=== PATIENT | female | born 1955 ===

== ENCOUNTER 2018-08-25 10:57 | Inpatient (IN) | payer MEDICARE, MEDICAID ==
--- NOTE | 2018-08-25 11:08 | ED PDOC ---
Psych Transfer Clearance - Clearance Statement Clearance Statement: Reviewed vital signs, lab results and transfer papers. Patient clinically stable for psychiatric admission.
[2018-08-25 11:10] VITALS: O2SAT 96
[2018-08-25] MEDS ORDERED: Magnesium Hydroxide Susp 30 ml UD PO PRN (11:32)
[2018-08-25] MEDS ORDERED: Bismuth Subsalicylate 262 mg/15 ml Sus (240 ml) PO PRN (11:32)
--- NOTE | 2018-08-25 11:40 | PCM.PSYCH ---
Initial Psychiatric Evaluation - Initial Psychiatric Evaluation Type of Admission: Voluntary Legal Status: Capacity Chief Complaint (in patient's own words): "I'm talking to my mother." Patient's Reaction to Hospitalization: HPI: 63 yo female w/ h/o Bipolar Disorder vs Schizoaffective Disorder (pt reports she has been diagnosed with both), presents w/ worsening depression, poor sleep, poor appetite and auditory and visual hallucinations of her mother. She reports that she has been talking to her mother. No SI/HI/paranoia. PPHx: H/o Bipolar Disorder vs Schizoaffective Disorder; currently prescribed Abilify 15 mg, Prozac 20 mg, Remeron 15 mg, Wellbutrin 75 mg, Cogentin 1 mg, Topamax 25 mg-prescribed by different providers. PMHx: HLD, HTN PSurgHx: 2015- h/o R breast cancer s/p mastectomy and chemo; gastric sleeve ALL: Iodine, Latex, PC SHx: Lives alone, , 3 adult children, from [facility], denies drugs/etoh/cig use Current Medications: Active Medications Generic Name Dose Route Start Last Admin Trade Name Freq PRN Reason Stop Dose Admin Acetaminophen 650 mg 08/25/18 11:32 Tylenol 325mg Tab PO Q4 PRN Pain, moderate (4-7) Al Hydrox/Mg Hydrox/Simethicone 30 ml 08/25/18 11:32 Maalox Plus 30 Ml PO Q4 PRN Dyspepsia Bismuth Subsalicylate 524 mg 08/25/18 11:32 Pepto-Bismol PO Q4 PRN Diarrhea Lorazepam 0.5 mg 08/25/18 11:32 Ativan PO 09/08/18 11:33 HS PRN Insomnia Lorazepam 0.5 mg 08/25/18 11:32 Ativan PO 09/08/18 11:33 Q6 PRN Anixety/Agitation Magnesium Hydroxide 30 ml 08/25/18 11:32 Milk Of Magnesia PO HS PRN Constipation Past Psychiatric History - Past Psychiatric History Pertinent Medical Hx (Current Medical&Sleep Prob, Allergies): Allergies Allergy/AdvReac Type Severity Reaction Status Date / Time Iodinated Contrast- Oral and Allergy RASH Verified 08/25/18 11:02 IV Dye latex Allergy RASH Verified 08/25/18 11:02 Penicillins Allergy RASH Verified 08/25/18 11:02 Review of Systems - Psychiatric Psychiatric: Abnormal Sleep Pattern, Anxiety, Auditory Hallucinations, Behavioral Changes, Change in Appetite, Depression, Difficulty Concentrating, Hallucinations, Hopelessness, Irritability, Mood Swings, Visual Hallucinations Mental Status Examination - Personal Presentation Personal Presentation: Looks stated age - Affect Affect: Constricted, Depressed - Motor Activity Motor Activity: Calm - Reliability in Providing Information Reliability in Providing Information: Fair - Speech Speech: Coherent - Mood Mood: Depressed - Formal Thought Process Formal Thought Process: Hallucinations - Hallucinations/Delusions Hallucinations: Visual, Auditory - Obsessions/Compulsions Obsessions: No Compulsions: No - Cognitive Functions Orientation: Person, Place, Situation, Time Sensorium: Alert Judgement: Intact, as evidence by: Insight regarding need for hospitalization Memory: Recent intact, as evidence by: Ability to recall events of the day - Risk Risk: Diminished functioning - Strength & Assets Inventory Strength & Assets Inventory: Cooperative - Limitations Limitations: Living alone, Decreased memory, recent DSM 5 DX - DSM 5 DSM 5 Diagnosis: Schizoaffective Disorder - Recommended/Plan of Treatment Treatment Recommendations and Plan of Treatment: Schizoaffective Disorder -Admit to psychiatry unit -Increase Abilify -Increase Remeron -Hold other psychiatric medications to determine if they are clinically indicated -Obtain collateral history -Medicine consult -Disposition planning Projected ELOS: 7-10 days Discharge Plan and Discharge Criteria: Discharge patient when she is psychiatrically stable - Smoking Cessation Smoking Cessation Initiated: No Reason for not providing: Not indicated
--- NOTE | 2018-08-25 14:37 | PCM.BM ---
<GeoffLesli C - Last Filed: 08/25/18 14:34> Treatment Plan Problems - Problems identified on initial assessmt ALTERED THOUGHT PROCESS Date Initiated: 08/25/18 Time Initiated: 14:35 Assessment reference: HP, NA Status: Active TACTILE HALLUCINATIONS Date Initiated: 08/25/18 Time Initiated: 14:38 Assessment reference: HP, NA Status: Active AUDITORY HALLUCINATIONS Date Initiated: 08/25/18 Time Initiated: 14:39 Assessment reference: HP, NA Status: Active VISUAL HALLUCINATIONS Date Initiated: 08/25/18 Time Initiated: 14:40 Assessment reference: HP, NA Status: Active ALTERED SLEEP Date Initiated: 08/25/18 Time Initiated: 14:40 Assessment reference: HP, NA Status: Active HOPELESS/HELPLESS Date Initiated: 08/25/18 Time Initiated: 14:41 Assessment reference: HP, NA Status: Active KNOWLEDGE DEFICIT: HYPERTENSION Date Initiated: 08/25/18 Time Initiated: 14:42 Assessment reference: HP, NA Status: Active IMPAIRED Date Initiated: 08/25/18 Time Initiated: 14:42 Assessment reference: HP, NA Status: Active Treatment assets and liabiliti Patient Assests: cooperative, cognitively intact Patient Liabilities: live alone, language/speech - Milieu Protocol Maintain good personal hygiene: daily Encourage regular showers, daily Remind patient to perform daily oral care, daily Assist patient to perform ADL's Maintain personal safety: every shift Educate patient to report safety concerns to staff, every shift Monitor environment for contraband/sharps Medication safety: Monitor for expected outcome, potential side effects: every shift, Assess barriers to learning: every shift, Assess readiness for medication education: every shift Milieu Narrative: Schizoaffective Disorder -Admit to psychiatry unit -Increase Abilify -Increase Remeron -Hold other psychiatric medications to determine if they are clinically indicated -Obtain collateral history -Medicine consult -Disposition planning Family Contact Family contact name: RANCHO BUSH Family contact comment: RANCHO BUSH [phone] Discharge/Continuing Care - Treatment Team Participation Patient/Family/SO Statement: Schizoaffective Disorder -Admit to psychiatry unit -Increase Abilify -Increase Remeron -Hold other psychiatric medications to determine if they are clinically indicated -Obtain collateral history -Medicine consult -Disposition planning <Alyssa Brown - Last Filed: 08/28/18 11:52> - Diagnosis (1) Schizoaffective disorder Status: Acute Interventions: Medication management, Individual and group therapy, Psychoeducation 08/28/18 11:52 <Falguni Zurita - Last Filed: 08/29/18 08:18> Family Contact Family involvement: Family/SO is involved Family contact: Patient agrees to contact, Family has been contacted by patient, Telephone contact initiated by staff Family contact name: Rancho Bush - son Family contacted how many times per week?: 1 Family contact comment: [phone] - Outside Agency [facility] involvment: Information-sharing Agency contact name: [address] [place] [address]. [place] [address] Agency contact number: [phone] - Goals for Treatment Patient goals for treatment: Pt will improve overall mood. Pt wll be free of suicidal thoughts. Pt will develop strategies for thought distrction when ruminating on the past. Pt will attend clinical and activity groups to learn different coping skills. Discharge/Continuing Care - Education Needs Education Needs: Family Medication, Family Diagnosis/Disease Process, Family Coping Skills, Family Community resources, Family Activities of Daily Living, Family Health Practices/Safety, Family Personal Hygiene/Grooming, Family Aftercare Safety Plan, Patient Medication, Patient Diagnosis/Disease Process, Patient Coping Skills, Patient Community resources, Patient Activities of Daily Living, Patient Health Practices/Safety, Patient Personal Hygiene/Grooming, Patient Aftercare Safety Plan - Discharge Discharge Criteria: Tolerates medication w/o severe side effects, Free of Suicidal thoughts, Normal sleep pattern, Ability to care for self, Reduction of target symptoms, Other (Decreased depression and anxiety symptoms) Discharge to:: Home - Additional Comments 08/29/18 08:13 Pt seen and discussed in team meeting. Reason for hospitalization reviewed and discussed. Pt was a transfer from [facility]. Pt reported auditory hallucinations stating she was talking to her mother. Pt reported feeling depressed, anxious, lonely and abandoned. Pt reported that the root of her recent depression has been her children. Pt reported that she does not know the whereabouts of her daughter for the past one year; her son in [place] has a demanding job and has not visited her; and her son in [place], [place] is estranged form her. Pt reported that she bought a dog to "fill the emptiness" but that it shelton snot helped her. Pt reported that she has been experiencing suicide thoughts but no intent or plan. Pt reported hx of suicide attempt sin the past. Pt reported hx of multiple psychiatric hospitalizations. Pt reported that she feels her medications are not helping her. Pt's social and medical issues reviewed. Pt's medications reviewed. Tx plan reviewed and discussed; pt verbalized agreement. Pt provided junior underwriter with verbal and written to call her son, Rancho. SW will continue to follow case. - Treatment Team Participation Discussed with Family/SO: No Was Patient/Family/SO present at Treatment Team Meeting: Yes
[2018-08-25] MEDS: Alum-Mag Hydrox-Simethicone Susp (30 mL) PO PRN ×2 (17:31→21:32)
--- NOTE | 2018-08-25 19:45 | CP.PCM.CON ---
History of Present Illness - History of Present Illness History of Present Illness: 63 yo female with hsitory of Bipolar DO admitted to psyche unit because of worsening depression. Review of Systems - Review of Systems All systems: reviewed and no additional remarkable complaints except (aside from those mentioned above, 12 point system review were negative by me) Past Patient History - Tetanus Immunizations Tetanus Immunization: Unknown - Past Social History Smoking Status: Unknown If Ever Smoked Chewing Tobacco Use: No Cigar Use: No Alcohol: None Drugs: Denies - CARDIAC Hx Hypertension: Yes Other/Comment: Cardiac Cath 05/2018 - PULMONARY Hx Respiratory Disorders: No - NEUROLOGICAL Hx Neurological Disorder: No - HEENT Hx HEENT Problems: No - RENAL Hx Chronic Kidney Disease: No - ENDOCRINE/METABOLIC Hx Endocrine Disorders: No - HEMATOLOGICAL/ONCOLOGICAL Hx Blood Disorders: No - INTEGUMENTARY Hx Dermatological Problems: No - MUSCULOSKELETAL/RHEUMATOLOGICAL Hx Musculoskeletal Disorders: No Hx Falls: No - GASTROINTESTINAL Hx Gastrointestinal Disorders: Yes Other/Comment: history of intestinal surgery 1995 - GENITOURINARY/GYNECOLOGICAL Hx Genitourinary Disorders: No - PSYCHIATRIC Hx Bipolar Disorder: Yes Hx Depression: Yes Hx Schizophrenia: Yes Hx Substance Use: No - SURGICAL HISTORY Hx Surgeries: Yes Hx Cardiac Catheterization: Yes Hx Mastectomy: Yes - ANESTHESIA Hx Anesthesia: Yes Hx Anesthesia Reactions: No Meds Allergies/Adverse Reactions: Allergies Allergy/AdvReac Type Severity Reaction Status Date / Time Iodinated Contrast- Oral and Allergy RASH Verified 08/25/18 11:02 IV Dye latex Allergy RASH Verified 08/25/18 11:02 Penicillins Allergy RASH Verified 08/25/18 11:02 - Medications Medications: Current Medications Acetaminophen (Tylenol 325mg Tab) 650 mg PO Q4 PRN PRN Reason: Pain, moderate (4-7) Al Hydrox/Mg Hydrox/Simethicone (Maalox Plus 30 Ml) 30 ml PO Q4 PRN PRN Reason: Dyspepsia Last Admin: 08/25/18 17:31 Dose: 30 ml Aripiprazole (Abilify) 20 mg PO DAILY ARGENIS Last Admin: 08/25/18 17:28 Dose: 20 mg Aspirin (Ecotrin) 81 mg PO DAILY ARGENIS Atorvastatin Calcium (Lipitor) 40 mg PO HS ARGENIS Bismuth Subsalicylate (Pepto-Bismol) 524 mg PO Q4 PRN PRN Reason: Diarrhea Ergocalciferol (Drisdol 50,000 Intl Units Cap) 1 cap PO QWK ARGENIS HCTZ/Losartan Potassium (Hyzaar 12.5 Mg-50 Mg) 1 tab PO DAILY ARGENIS Lorazepam (Ativan) 0.5 mg PO HS PRN PRN Reason: Insomnia Stop: 09/08/18 11:33 Lorazepam (Ativan) 0.5 mg PO Q6 PRN PRN Reason: Anixety/Agitation Stop: 09/08/18 11:33 Magnesium Hydroxide (Milk Of Magnesia) 30 ml PO HS PRN PRN Reason: Constipation Metoprolol Succinate (Toprol Xl) 25 mg PO DAILY ARGENIS Mirtazapine (Remeron) 30 mg PO HS ARGENIS Pantoprazole Sodium (Protonix Ec Tab) 40 mg PO DAILY ARGENIS Physical Exam - Constitutional Appears: No Acute Distress - Head Exam Head Exam: ATRAUMATIC - Eye Exam Eye Exam: absent: Scleral icterus - ENT Exam ENT Exam: Mucous Membranes Moist - Neck Exam Neck exam: Negative for: Meningismus - Respiratory Exam Respiratory Exam: absent: Rales, Rhonchi, Wheezes, Respiratory Distress - Cardiovascular Exam Cardiovascular Exam: REGULAR RHYTHM, +S1, +S2 - GI/Abdominal Exam GI & Abdominal Exam: Soft. absent: Tenderness - Rectal Exam Rectal Exam: Deferred - Neurological Exam Neurological exam: Alert, Oriented x3 - Psychiatric Exam Psychiatric exam: Normal Affect - Skin Skin Exam: Dry, Intact Results - Vital Signs Recent Vital Signs: Last Vital Signs Temp 98 F 08/25/18 16:39 Pulse 97 H 08/25/18 16:39 Resp 20 08/25/18 16:39 BP 120/65 08/25/18 16:39 Pulse Ox 96 08/25/18 11:08 Assessment & Plan (1) Depression Status: Acute Comment: psyche is managing (2) HTN (hypertension) Status: Chronic Comment: BP stable. continue Losartan/HCTZ (3) History of breast cancer Status: Chronic Comment: continue Arimedex
[2018-08-26] MEDS: Pantoprazole 40 mg EC Tab PO SCH (08:41)
[2018-08-26] MEDS: Metoprolol Succinate 25 mg XL Tab PO SCH (08:41)
[2018-08-26] MEDS: HCTZ/Losartan 12.5/50 Tab PO SCH (08:41)
[2018-08-26] MEDS ORDERED: Ergocalciferol 50,000 Intl Units Cap PO SCH (09:00)
[2018-08-26] MEDS: Alum-Mag Hydrox-Simethicone Susp (30 mL) PO PRN (09:15)
[2018-08-26 09:44] LABS: SQUAMOUS EPITHIAL 2 /hpf (0-5); URINE BACTERIA FEW (<OCC); URINE BILIRUBIN NEGATIVE (NEGATIVE); URINE BLOOD NEGATIVE (NEGATIVE); URINE CLARITY SLIGHTY-CLOUDY (Clear); URINE COLOR YELLOW (YELLOW); URINE GLUCOSE (UA) NEG (NEGATIVE); URINE LEUKOCYTE ESTERASE NEG Leu/uL (Negative); URINE PROTEIN NEGATIVE (NEGATIVE); URINE UROBILINOGEN 0.2-1.0 mg/dL (0.2-1.0)
--- NOTE | 2018-08-26 09:45 | PCM.PYCHPN ---
Psychiatric Progress Note - Psychiatric Progress Note Patient seen today, length of contact: pt evaluated discussed with team chart reviewed Patient Chief Complaint: I still feel down Problems Identified/Issues Discussed: pt seen in day room, reported continues to feel anxious and down, underproductive speech anxious affect, denied command hallucinations, denied thoughts of self harm, o reported side effects of medications i DSM 5 Symptoms Update: schizoaffective disorder Medication Change: No Medical Record Reviewed: Yes Mental Status Examination - Cognitive Function Orientation: Person, Place, Situation, Time Attention: WNL Concentration: Poor Association: WNL Fund of Knowledge: Poor Decription of patient's judgement and insights: partial insight poor judgment - Mood Mood: Depressed - Affect Affect: Constricted, Depressed - Speech Speech: Soft - Formal Thought Process Formal Thought Process: Hallucinations - Suicidal Ideation Suicidal Ideation: No - Homicidal Ideation Homicidal Ideation: No Goal/Treatment Plan - Goal/Treatment Plan Need for Continued Stay: Remain at risks for inpatient hospitalization, Severe depression anxiety, Discharge may exacerbated symptoms Progress Toward Problem(s) and Goals/Treatment Plan: continue current medications group and supportive therapy
[2018-08-26 10:55] LABS: ALB/GLOB RATIO 1.2 (1.0-2.1); ALBUMIN 4.3 g/dL (3.5-5.0); ALT/SGPT 39 U/L (9-52); AST/SGOT 33 U/L (14-36); BLOOD UREA NITROGEN 26 mg/dl (7-17); CALCIUM 9.5 mg/dL (8.4-10.2); GFR NON-AFRICAN AMERICAN > 60; HDL CHOLESTEROL 65 MG/DL (30-70)
[2018-08-26 10:58] LABS: HEMOGLOBIN 12.4 g/dL (12.0-16.0); MEAN CELL VOLUME 94.7 fl (81.0-99.0); MEAN CORPUSCULAR HEMOGLOBIN 31.6 pg (27.0-31.0); MEAN CORPUSCULAR HGB CONC 33.4 g/dL (33.0-37.0); RBC 3.91 Mil/uL (3.80-5.20); RED CELL DISTRIBUTION WIDTH 13.3 % (11.5-14.5)
[2018-08-26 11:09] LABS: T4 7.11 ug/dl (5.5-11.0)
[2018-08-26 11:26] LABS: LDL CHOLESTEROL 135 mg/dL (0-129)
[2018-08-26 11:27] LABS: FERRITIN 28.9 ng/Ml (11.1-264.0)
[2018-08-27] MEDS: Metoprolol Succinate 25 mg XL Tab PO SCH (08:48)
[2018-08-27] MEDS: Pantoprazole 40 mg EC Tab PO SCH (08:49)
[2018-08-27] MEDS: HCTZ/Losartan 12.5/50 Tab PO SCH (08:49)
--- NOTE | 2018-08-27 10:25 | PCM.PYCHPN ---
Psychiatric Progress Note - Psychiatric Progress Note Patient seen today, length of contact: Pt evaluated, case discussed w/ team, chart reviewed Patient Chief Complaint: Depression Problems Identified/Issues Discussed: Pt continues to feel severe depression. She is labile and tearful. She denies acute AH/VH/SI/HI. She reports chronic migraines for which she takes Topamax at home. Medication Change: No Medical Record Reviewed: Yes Consults ordered or reviewed: Medicine consult Mental Status Examination - Cognitive Function Orientation: Person, Place, Situation, Time Attention: WNL Concentration: Poor Association: WNL Fund of Knowledge: Poor - Mood Mood: Depressed - Affect Affect: Constricted, Depressed - Speech Speech: Soft - Formal Thought Process Formal Thought Process: Circumstantial Psychotic Thoughts and Behaviors: Denies acute AH/VH - Suicidal Ideation Suicidal Ideation: No - Homicidal Ideation Homicidal Ideation: No Goal/Treatment Plan - Goal/Treatment Plan Need for Continued Stay: Remain at risks for inpatient hospitalization, Severe depression anxiety, Discharge may exacerbated symptoms Progress Toward Problem(s) and Goals/Treatment Plan: Schizoaffective Disorder -Contineu Abilify and Remeron -Continue Topamax for chronic migraines -Obtain collateral history -Medicine consult -Disposition planning
[2018-08-28] MEDS: Pantoprazole 40 mg EC Tab PO SCH (09:00)
[2018-08-28] MEDS: Metoprolol Succinate 25 mg XL Tab PO SCH (09:01)
[2018-08-28] MEDS: HCTZ/Losartan 12.5/50 Tab PO SCH (09:01)
--- NOTE | 2018-08-28 11:18 | PCM.PYCHPN ---
Psychiatric Progress Note - Psychiatric Progress Note Patient seen today, length of contact: Pt evaluated, case discussed w/ team, chart reviewed Patient Chief Complaint: Depression Problems Identified/Issues Discussed: Pt continues to feel depressed and anxious. She is tearful w/ mood lability. She denies acute AH/VH/SI/HI. Medication Change: No Medical Record Reviewed: Yes Consults ordered or reviewed: Medicine consult Mental Status Examination - Cognitive Function Orientation: Person, Place, Situation, Time Memory: Intact Attention: WNL Concentration: WNL Association: WNL Fund of Knowledge: WN Decription of patient's judgement and insights: Improving I/J - Mood Mood: Depressed - Affect Affect: Constricted, Depressed - Speech Speech: Soft - Formal Thought Process Formal Thought Process: Circumstantial Psychotic Thoughts and Behaviors: Denies acute AH/VH - Suicidal Ideation Suicidal Ideation: No - Homicidal Ideation Homicidal Ideation: No Goal/Treatment Plan - Goal/Treatment Plan Need for Continued Stay: Remain at risks for inpatient hospitalization, Severe depression anxiety, Discharge may exacerbated symptoms Progress Toward Problem(s) and Goals/Treatment Plan: Schizoaffective Disorder -Contineu Abilify and Remeron -Continue Topamax for chronic migraines -Obtain collateral history -Medicine consult -Disposition planning
[2018-08-28] MEDS: Docusate-Senna 50 mg-8.6 mg Tab PO SCH (21:04)
[2018-08-28 22:03] LABS: FOLATE 10.9 ng/mL
[2018-08-29] MEDS: Pantoprazole 40 mg EC Tab PO SCH (08:47)
[2018-08-29] MEDS: HCTZ/Losartan 12.5/50 Tab PO SCH (08:47)
[2018-08-29] MEDS: Metoprolol Succinate 25 mg XL Tab PO SCH (08:48)
--- NOTE | 2018-08-29 11:15 | PCM.PYCHPN ---
Psychiatric Progress Note - Psychiatric Progress Note Patient seen today, length of contact: Pt evaluated, case discussed w/ team, chart reviewed Patient Chief Complaint: Depression Problems Identified/Issues Discussed: Pt continues to feel depressed and anxious w/ tearful, constricted affect. She continues to report sleep disturbances. She denies acute AH/VH/SI/HI. Medication Change: No Medical Record Reviewed: Yes Consults ordered or reviewed: Medicine consult Mental Status Examination - Cognitive Function Orientation: Person, Place, Situation, Time Memory: Intact Attention: WNL Concentration: WNL Association: WNL Fund of Knowledge: [facility] Decription of patient's judgement and insights: Improving I/J - Mood Mood: Depressed - Affect Affect: Constricted, Depressed - Speech Speech: Soft - Formal Thought Process Formal Thought Process: Circumstantial Psychotic Thoughts and Behaviors: Denies acute AH/VH - Suicidal Ideation Suicidal Ideation: No - Homicidal Ideation Homicidal Ideation: No Goal/Treatment Plan - Goal/Treatment Plan Need for Continued Stay: Remain at risks for inpatient hospitalization, Severe depression anxiety, Discharge may exacerbated symptoms Progress Toward Problem(s) and Goals/Treatment Plan: Schizoaffective Disorder -Continue Abilify and Remeron -Continue Topamax for chronic migraines -Medicine consult -Disposition planning
--- NOTE | 2018-08-29 15:12 | CP.PCM.PN ---
<DylanLeslie - Last Filed: 08/29/18 15:18> Subjective - Date & Time of Evaluation Date of Evaluation: 08/29/18 Time of Evaluation: 15:09 - Subjective Subjective: Patient seen and evaluated today for right stye. Patient states that she noticed the bump yesterday during the afternoon. It has been causing slight pain to her upper eyelid. She denies any N/V/F/SOB/CP. Objective - Vital Signs/Intake and Output Vital Signs (last 24 hours): Temp Pulse Resp BP Pulse Ox 98.1 F 69 18 123/62 96 08/29/18 06:00 08/29/18 08:48 08/29/18 06:00 08/29/18 08:48 08/25/18 11:08 - Medications Medications: Current Medications Acetaminophen (Tylenol 325mg Tab) 650 mg PO Q4 PRN PRN Reason: Pain, moderate (4-7) Last Admin: 08/29/18 11:13 Dose: 650 mg Al Hydrox/Mg Hydrox/Simethicone (Maalox Plus 30 Ml) 30 ml PO Q4 PRN PRN Reason: Dyspepsia Last Admin: 08/26/18 09:15 Dose: 30 ml Anastrozole (Arimidex 1 Mg Tab) 1 mg PO DAILY [facility] Last Admin: 08/29/18 08:45 Dose: 1 mg Aripiprazole (Abilify) 20 mg PO DAILY [facility] Last Admin: 08/29/18 08:44 Dose: 20 mg Aspirin (Ecotrin) 81 mg PO DAILY [facility] Last Admin: 08/29/18 08:46 Dose: 81 mg Atorvastatin Calcium (Lipitor) 40 mg PO HS [facility] Last Admin: 08/28/18 21:04 Dose: 40 mg Bismuth Subsalicylate (Pepto-Bismol) 524 mg PO Q4 PRN PRN Reason: Diarrhea Ergocalciferol (Drisdol 50,000 Intl Units Cap) 1 cap PO QWK [facility] HCTZ/Losartan Potassium (Hyzaar 12.5 Mg-50 Mg) 1 tab PO DAILY [facility] Last Admin: 08/29/18 08:47 Dose: 1 tab Lorazepam (Ativan) 0.5 mg PO HS PRN PRN Reason: Insomnia Stop: 09/08/18 11:33 Lorazepam (Ativan) 0.5 mg PO Q6 PRN PRN Reason: Anixety/Agitation Stop: 09/08/18 11:33 Magnesium Hydroxide (Milk Of Magnesia) 30 ml PO HS PRN PRN Reason: Constipation Metoprolol Succinate (Toprol Xl) 25 mg PO DAILY [facility] Last Admin: 08/29/18 08:48 Dose: 25 mg Mirtazapine (Remeron) 30 mg PO HS [facility] Last Admin: 08/28/18 21:04 Dose: 30 mg Pantoprazole Sodium (Protonix Ec Tab) 40 mg PO DAILY [facility] Last Admin: 08/29/18 08:47 Dose: 40 mg Senna/Docusate Sodium (Senokot S 50 Mg-8.6 Mg) 1 tab PO HS [facility] Last Admin: 08/28/18 21:04 Dose: 1 tab Topiramate (Topamax) 25 mg PO Q12 [facility] Last Admin: 08/29/18 08:48 Dose: 25 mg - Labs Labs: 08/26/18 09:50 08/26/18 09:50 - Constitutional Appears: Non-toxic, No Acute Distress - Head Exam Head Exam: ATRAUMATIC, NORMOCEPHALIC - Eye Exam Eye Exam: Normal appearance Pupil Exam: NORMAL ACCOMODATION - Respiratory Exam Respiratory Exam: Clear to Ausculation Bilateral, NORMAL BREATHING PATTERN - Cardiovascular Exam Cardiovascular Exam: REGULAR RHYTHM - GI/Abdominal Exam GI & Abdominal Exam: Soft, Normal Bowel Sounds - Neurological Exam Neurological Exam: Alert, Awake, Oriented x3 - Psychiatric Exam Psychiatric exam: Normal Affect Assessment and Plan - Assessment and Plan (Free Text) Assessment: 63 year old female with PMHx of bipolar disorder admitted for worsening depression Plan: 1. Right eye stye Acute Apply warm compresses to right eye Encouraged patient to wash hands frequently 2. Depression Acute Managed by psych 3. HTN Chronic C/w Losartan/HCTZ <Lieberman,Felipe D - Last Filed: 09/01/18 09:55> Objective - Vital Signs/Intake and Output Vital Signs (last 24 hours): Temp Pulse Resp BP Pulse Ox 98.1 F 63 18 102/70 96 09/01/18 06:00 09/01/18 08:31 09/01/18 06:00 09/01/18 08:31 08/25/18 11:08 - Medications Medications: Current Medications Acetaminophen (Tylenol 325mg Tab) 650 mg PO Q4 PRN PRN Reason: Pain, moderate (4-7) Last Admin: 09/01/18 02:22 Dose: 650 mg Anastrozole (Arimidex 1 Mg Tab) 1 mg PO DAILY [facility] Last Admin: 09/01/18 08:30 Dose: 1 mg Aripiprazole (Abilify) 20 mg PO DAILY [facility] Last Admin: 09/01/18 08:29 Dose: 20 mg Aspirin (Ecotrin) 81 mg PO DAILY [facility] Last Admin: 09/01/18 08:30 Dose: 81 mg Atorvastatin Calcium (Lipitor) 40 mg PO HS [facility] Last Admin: 08/31/18 21:22 Dose: 40 mg Ergocalciferol (Drisdol 50,000 Intl Units Cap) 1 cap PO QWK [facility] HCTZ/Losartan Potassium (Hyzaar 12.5 Mg-50 Mg) 1 tab PO DAILY [facility] Last Admin: 09/01/18 08:31 Dose: 1 tab Metoprolol Succinate (Toprol Xl) 25 mg PO DAILY [facility] Last Admin: 09/01/18 08:31 Dose: 25 mg Mirtazapine (Remeron) 30 mg PO HS [facility] Last Admin: 08/31/18 21:23 Dose: 30 mg Pantoprazole Sodium (Protonix Ec Tab) 40 mg PO DAILY [facility] Last Admin: 09/01/18 08:31 Dose: 40 mg Senna/Docusate Sodium (Senokot S 50 Mg-8.6 Mg) 1 tab PO HS [facility] Last Admin: 08/31/18 21:23 Dose: 1 tab Topiramate (Topamax) 25 mg PO Q12 [facility] Last Admin: 09/01/18 08:31 Dose: 25 mg - Labs Labs: 08/26/18 09:50 08/26/18 09:50 Assessment and Plan (1) Depression Status: Acute (2) HTN (hypertension) Status: Chronic (3) History of breast cancer Status: Chronic Attending/Attestation - Attestation I have personally seen and examined this patient.: No I have fully participated in the care of the patient.: No I have reviewed all pertinent clinical information, including history, physical exam and plan: No Notes (Text): 09/01/18 09:54 I saw this patient the previous day but didn't see her on 08/29/2018.
[2018-08-29] MEDS: Docusate-Senna 50 mg-8.6 mg Tab PO SCH (21:21)
--- NOTE | 2018-08-30 09:37 | PCM.PYCHPN ---
Psychiatric Progress Note - Psychiatric Progress Note Patient seen today, length of contact: Pt evaluated, case discussed w/ team, chart reviewed Patient Chief Complaint: Depression Problems Identified/Issues Discussed: Pt continues to feel depressed and anxious, but reports that her mood is starting to improve. She continues to report sleep disturbances. She denies acute AH/VH/SI/HI. Medication Change: No Medical Record Reviewed: Yes Consults ordered or reviewed: Medicine consult Mental Status Examination - Cognitive Function Orientation: Person, Place, Situation, Time Memory: Intact Attention: WNL Concentration: WNL Association: WNL Fund of Knowledge: WNL Decription of patient's judgement and insights: Improving I/J - Mood Mood: Depressed - Affect Affect: Constricted, Depressed - Speech Speech: Soft - Formal Thought Process Formal Thought Process: Circumstantial Psychotic Thoughts and Behaviors: Denies acute AH/VH - Suicidal Ideation Suicidal Ideation: No - Homicidal Ideation Homicidal Ideation: No Goal/Treatment Plan - Goal/Treatment Plan Need for Continued Stay: Remain at risks for inpatient hospitalization, Severe depression anxiety, Discharge may exacerbated symptoms Progress Toward Problem(s) and Goals/Treatment Plan: Schizoaffective Disorder -Continue Abilify and Remeron -Continue Topamax for chronic migraines -Medicine consult -Disposition planning
[2018-08-30] MEDS: Pantoprazole 40 mg EC Tab PO SCH (10:16)
[2018-08-30] MEDS: Metoprolol Succinate 25 mg XL Tab PO SCH (10:17)
[2018-08-30] MEDS: HCTZ/Losartan 12.5/50 Tab PO SCH (10:17)
[2018-08-30] MEDS: Docusate-Senna 50 mg-8.6 mg Tab PO SCH (21:10)
[2018-08-31 05:42] VITALS: RESP 18
--- NOTE | 2018-08-31 08:34 | PCM.PYCHPN ---
Psychiatric Progress Note - Psychiatric Progress Note Patient seen today, length of contact: Pt evaluated, case discussed w/ team, chart reviewed Patient Chief Complaint: Depression Problems Identified/Issues Discussed: Pt reports that she feels less anxious and less depressed. She is more goal oriented. She has improved sleep and normal appetite. She denies acute AH/VH/SI/HI. Medication Change: No Medical Record Reviewed: Yes Consults ordered or reviewed: Medicine consult Mental Status Examination - Cognitive Function Orientation: Person, Place, Situation, Time Memory: Intact Attention: WNL Concentration: WNL Association: WNL Fund of Knowledge: [facility] Decription of patient's judgement and insights: Good I/J - Mood Mood: Anxious - Affect Affect: Constricted - Speech Speech: Appropriate - Formal Thought Process Formal Thought Process: No Impairment Psychotic Thoughts and Behaviors: Denies acute AH/VH - Suicidal Ideation Suicidal Ideation: No - Homicidal Ideation Homicidal Ideation: No Goal/Treatment Plan - Goal/Treatment Plan Need for Continued Stay: Severe depression anxiety Progress Toward Problem(s) and Goals/Treatment Plan: Schizoaffective Disorder -Continue Abilify and Remeron -Continue Topamax for chronic migraines -Medicine consult -Disposition planning- patient is improving clinically; will likely discharge to home tomorrow Estimated Date of D/C: 09/01/18
[2018-08-31] MEDS: Pantoprazole 40 mg EC Tab PO SCH (09:55)
[2018-08-31] MEDS: Metoprolol Succinate 25 mg XL Tab PO SCH (10:01)
[2018-08-31] MEDS: HCTZ/Losartan 12.5/50 Tab PO SCH (10:02)
[2018-08-31] MEDS: Alum-Mag Hydrox-Simethicone Susp (30 mL) PO PRN (15:30)
[2018-08-31] MEDS: Docusate-Senna 50 mg-8.6 mg Tab PO SCH (21:23)
[2018-09-01] MEDS: Alum-Mag Hydrox-Simethicone Susp (30 mL) PO PRN (02:22)
[2018-09-01 06:09] VITALS: BP 102/70; PULSE 63; TEMP 98.1
--- NOTE | 2018-09-01 08:21 | PCM.PYCHDC ---
Mental Status Examination - Mental Status Examination Orientation: Person, Place, Situation, Time Memory: Intact Mood: Neutral Affect: Broad Speech: Appropriate Attention: WNL Concentration: WNL Association: WNL Fund of Knowledge: WNL Formal Thought Process: No Impairment Description of patient's judgement and insight: Good I/J Psychotic Thoughts and Behaviors: Denies acute AH/VH Suicidal Ideation: No Current Homicidal Ideation?: No Discharge Summary - Discharge Note Reason for Hospitalization: HPI: 63 yo female w/ h/o Bipolar Disorder vs Schizoaffective Disorder (pt reports she has been diagnosed with both), presents w/ worsening depression, poor sleep, poor appetite and auditory and visual hallucinations of her mother. She reports that she has been talking to her mother. No SI/HI/paranoia. PPHx: H/o Bipolar Disorder vs Schizoaffective Disorder; currently prescribed Abilify 15 mg, Prozac 20 mg, Remeron 15 mg, Wellbutrin 75 mg, Cogentin 1 mg, Topamax 25 mg-prescribed by different providers. PMHx: HLD, HTN PSurgHx: 2015- h/o R breast cancer s/p mastectomy and chemo; gastric sleeve ALL: Iodine, Latex, PC SHx: Lives alone, , 3 adult children, from [facility], denies drugs/etoh/cig use Consultations:: List each consultation separately and include: 1. Reason for request. 2. Findings. 3. Follow-up Consultations: Medicine consult Summary of Hospital Course include:: 1. Description of specific treatment plan utilized for patients during their course of treatmen. 2. Summarize the time- course for resolution of acute symptoms and/or regressed behaviors. 3. Describe issues identified and worked on during hospitalization. 4. Describe medication utilized. 5. Describe medical problems identified and treated. 6. Reassessment of suicide risk Summary of Hospital Course: Patient was admitted to the psychiatry unit. Individual and group therapy were provided. Patient was stabilized on Abilify 20 mg PO Daily, Remeron 30 mg PO HS. She denies acute depression/anxiety/AH/VH/paranoia/delusions/SI/HI. Patient is currently psychiatrically stable for discharge. Psychoeducation provided on the importance of compliance with treatment and medications. - Diagnosis (1) Schizoaffective disorder Current Visit: Yes Status: Acute - Final Diagnosis (DSM 5) Condition upon Discharge: GOOD DSM 5: Schizoaffective Disorder Disposition: HOME/ ROUTINE Follow-up Treatment Plan: Schizoaffective Disorder -Continue Abilify and Remeron -Continue Topamax for chronic migraines -Medicine consult -Disposition planning- patient is improving clinically; will likely discharge to home tomorrow Prescriptions/Medication Reconciliation: Aripiprazole [Abilify] 20 mg PO DAILY #30 tablet Losartan/Hydrochlorothiazide [Losartan-Hctz 50-12.5 mg Tab] 1 each PO DAILY #30 tablet Metoprolol Succinate [Toprol Xl] 25 mg PO DAILY #30 tab.er.24h Mirtazapine [Remeron] 30 mg PO HS #60 tab Pantoprazole [Protonix EC Tab] 40 mg PO DAILY #30 ect - Smoking Cessation Smoking Cessation Medication prescribed: No Reason for not providing: Not indicated - Antipsychotic Medications Pt discharged on 2 or more routine antipsychotic medications: No
[2018-09-01] MEDS: Pantoprazole 40 mg EC Tab PO SCH (08:31)
[2018-09-01] MEDS: HCTZ/Losartan 12.5/50 Tab PO SCH (08:31)
[2018-09-01] MEDS: Metoprolol Succinate 25 mg XL Tab PO SCH (08:31)
== END 2018-09-01 13:33 | disposition home or self-care (01) | DRG 885 ==
LOC: H.ER 10:57 → H.ERHOLD 11:06 → H.STEP 11:47
PROVIDERS: ADMIT Psychiatry & Neurology Psychiatry; ATTEND Psychiatry & Neurology Psychiatry
PROC: GZHZZZZ Group Psychotherapy (ICD-10-PCS; principal; 2018-08-31)
PROC: GZ51ZZZ Individual Psychotherapy, Behavioral (ICD-10-PCS; 2018-08-31)
PROC: GZ56ZZZ Individual Psychotherapy, Supportive (ICD-10-PCS; 2018-08-31)
DX: F25.9 Schizoaffective disorder, unspecified (principal); R45.851 Suicidal ideations; F31.9 Bipolar disorder, unspecified; G43.909 Migraine, unspecified, not intractable, without status migrainosus; H00.013 Hordeolum externum right eye, unspecified eyelid; I10 Essential (primary) hypertension; Z79.899 Other long term (current) drug therapy; Z85.3 Personal history of malignant neoplasm of breast; Z90.10 Acquired absence of unspecified breast and nipple; Z91.5 Personal history of self-harm; Z92.21 Personal history of antineoplastic chemotherapy; G47.9 Sleep disorder, unspecified; E78.5 Hyperlipidemia, unspecified